=== PATIENT | female | born 2000 | race African-American/Black ===

== ENCOUNTER 2022-12-25 12:30 | Emergency (ER) | payer MEDICAID ==
[~2022-12-25] VITALS: Ht 157.5 cm; Wt 77.3 kg
[2022-12-25] MEDS ORDERED: KETOROLAC 30MG/ML VIAL IM STA (13:24)
[2022-12-25 13:47] LABS: CLARITY URINE CLEAR (CLEAR); COLOR URINE YELLOW (YELLOW); KETONES URINE NEGATIVE (NEGATIVE); LEUKOCYTE ESTERASE URINE TRACE (NEGATIVE); NITRITE URINE NEGATIVE (NEGATIVE); OCCULT BLOOD URINE 1+ (NEGATIVE); PH URINE 5.5 (4.5-8.0); PROTEIN URINE NEGATIVE (NEGATIVE); UROBILINOGEN URINE 0.2 E.U./dL (0.2-1.0)
[2022-12-25 14:11] LABS: BASOPHILS % 0.9 % (0.0-2.0); EOSINOPHILS % 0.4 % (0.0-5.0); HEMOGLOBIN. 13.2 g/dL (12.0-16.0); LYMPHOCYTES % 31.8 % (20.0-50.0); MEAN CORPUSCULAR HEMOGLOBIN 29.3 pg (28.0-32.0); MEAN CORPUSCULAR VOLUME 84.6 fL (81.0-99.0); MEAN PLATELET VOLUME 8.6 fl (7.4-10.4); MONOCYTES % 6.9 % (2.0-8.0); PLATELET 277 x1000/uL (130-400); RED CELL DISTRIBUTION WIDTH 14.6 % (11.6-14.6)
[2022-12-25 14:20] LABS: CHLORIDE 105 mEq/L (98-107)
[2022-12-25] MEDS ORDERED: LIDO700A15 TP (14:32)
[2022-12-25] MEDS ORDERED: NAPR-681 MT (14:32)
[2022-12-25 15:03] VITALS: BP 117/75
== END 2022-12-25 15:05 | disposition home or self-care (01) ==
LOC: ER 12:30
DX: R10.9 Unspecified abdominal pain (principal)
CPT/HCPCS: 36415; 71045; 80053; 81003; 81025; 83690; 85025; 96372; 99284; J1885; Z7610